=== PATIENT | female | born 1960 | race American Indian/Alaskan Native ===

== ENCOUNTER 2019-06-27 12:13 | Emergency (ER) | payer SELFPAY ==
--- NOTE | 2019-06-27 12:28 | Event Note ---
ED Screening Note Date of service: 06/27/19 Time: 12:27 ED Screening Note: 58 y o female presenst with left 3 finger lac today while working in yard This initial assessment/diagnostic orders/clinical plan/treatment(s) is/are subject to change based on patients health status, clinical progression and re- assessment by fellow clinical providers in the ED. Further treatment and workup at subsequent clinical providers discretion. Patient/guardian urged not to elope from the ED as their condition may be serious if not clinically assessed and managed. Initial orders include: xr lft finger
--- NOTE | 2019-06-27 13:15 | Emergency Department Report ---
ED Laceration HPI - HPI Chief Complaint: Fever Stated Complaint: LFT HAND CUT/PAIN Time Seen by Provider: 06/27/19 12:25 Occurred When: Today Location: Upper Extremity (left hand) Severity: moderate Laceration Symptoms: Yes Pain, No Foreign Body Sensation, No Numbness, No Weakness Other History: This is a 58-year-old -[place] female who presents to the emergency room with lacerations to left second, third, and fourth fingers. Patient states she was working in her when she accidentally cut her fingers with a electric guillotine trimmer. Patient has not applied anything to wound. Patient's pain she ran with the Tylenol and came in for evaluation. Patient states she is able to move all fingers and was able to give bleeding control. She reports pain with range of motion or touch. Denies numbness or tingling, swelling. ED Review of Systems ROS: Stated complaint: LFT HAND CUT/PAIN Other details as noted in HPI Constitutional: denies: chills, fever Respiratory: denies: cough, shortness of breath, wheezing Cardiovascular: denies: chest pain, palpitations Gastrointestinal: denies: abdominal pain, nausea, diarrhea Musculoskeletal: denies: back pain, joint swelling, arthralgia Skin: lesions (laceration of left second, third, and fourth fingers). denies: rash Neurological: denies: headache, weakness, paresthesias Psychiatric: denies: anxiety, depression ED Past Medical Hx - Past Medical History Previous Medical History?: Yes Hx of Cancer: Yes (left breast) Additional medical history: Anemia, Hypothyroid - Surgical History Past Surgical History?: Yes Additional Surgical History: Tonsillectomy,Gastric bypass, Hysterectomy, left mastectomy - Social History Smoking Status: Never Smoker Substance Use Type: Prescribed - Medications Home Medications: Home Medications Medication Instructions Recorded Confirmed Last Taken Type Clindamycin [Clindamycin CAP] 300 mg PO Q8H #21 cap 06/27/19 Unknown Rx Ibuprofen [Motrin 600 MG tab] 600 mg PO Q8H PRN #20 tablet 06/27/19 Unknown Rx Laceration Physical Exam - Exam General: Vital signs noted. No distress. Alert and acting appropriately. ED Course Vital Signs 06/27/19 12:23 Temperature 97.7 F Pulse Rate 76 Respiratory 20 Rate Blood Pressure 189/97 O2 Sat by Pulse 100 Oximetry - Laceration /Wound Repair Left Anterior Proximal Plantar Finger Wound Location: upper extremity (2nd proximal phalanx) Wound Length (cm): 2 Wound's Depth, Shape: into muscle, irregular, contused tissue Wound Explored: no foreign body removed Irrigated w/ Saline (ccs): 10 Betadine Prep?: Yes Anesthesia: 1% Lidocaine Volume Anesthetic (ccs): 1 Wound Debrided: minimal Wound Repaired With: sutures Suture Size/Type: 5:0 Number of Sutures: 7 (silver nitrate applied around wound) Layer Closure?: No Sterile Dressing Applied?: Yes Left Anterior Distal Plantar Finger Wound Location: upper extremity (2nd distal phalanx) Wound Length (cm): 1 Wound's Depth, Shape: superficial, irregular, contused tissue Wound Explored: no foreign body removed Irrigated w/ Saline (ccs): 1 Betadine Prep?: Yes Anesthesia: 1% Lidocaine Volume Anesthetic (ccs): 1 Wound Debrided: minimal Wound Repaired With: sutures Suture Size/Type: 5:0 Number of Sutures: 7 Layer Closure?: No Deep Layer Suture Size/Type: 5:0 Sterile Dressing Applied?: Yes Left Anterior Lateral Plantar Finger Wound Location: upper extremity (4th distal phalanx) Wound Length (cm): 1 Wound's Depth, Shape: into muscle, irregular, flap, contused tissue Wound Explored: no foreign body removed Irrigated w/ Saline (ccs): 10 Betadine Prep?: Yes Anesthesia: 1% Lidocaine Volume Anesthetic (ccs): 1 Wound Debrided: minimal Wound Repaired With: sutures Suture Size/Type: 5:0 Layer Closure?: No Sterile Dressing Applied?: Yes Left Anterior Plantar Finger Wound Location: upper extremity (third proximal phalanx) Wound Length (cm): 1 Wound's Depth, Shape: superficial Wound Explored: no foreign body removed Irrigated w/ Saline (ccs): 10 Betadine Prep?: Yes Anesthesia: 1% Lidocaine Volume Anesthetic (ccs): 1 Wound Debrided: minimal Wound Repaired With: Dermabond Suture Size/Type: 5:0 Layer Closure?: No Sterile Dressing Applied?: Yes ED Medical Decision Making - Radiology Data Radiology results: report reviewed Left hand 3 views INDICATION: Left hand pain following injury laceration IMPRESSION: Large lacerations involving the index middle and ring finger. No underlying foreign body or fracture. - Medical Decision Making Patient examined by me. Patient is non-toxic appearing and stable. X-ray of left hand obtained. Large lacerations involving the index middle and ring finger. No underlying foreign body or fracture. There are no signs of tendon damage on focal exam full range of motion of second, third, and fourth phalanx. Lacerations closed with sutures and glue, review note. After closure patient continued to bleed and silver nitrate applied around to control, bleeding controlled. Discharged home for outpatient treatment with clindamycin and ibuprofen. Discussed ER care plan with patient. Patient agreed with plan. F/U with PCP. Critical care attestation.: If time is entered above; I have spent that time in minutes in the direct care of this critically ill patient, excluding procedure time. ED Disposition Clinical Impression: Laceration of hand Qualifiers: Encounter type: initial encounter Foreign body presence: without foreign body Laterality: left Qualified Code(s): S61.412A - Laceration without foreign body of left hand, initial encounter Disposition: TO HOME OR SELFCARE Is pt being admited?: No Does the pt Need Aspirin: No Condition: Stable Instructions: Suture Care (ED), Laceration (ED) Additional Instructions: Take antibiotics as prescribed for the full course. Keep wound dry and clean for 48 hours. Avoid putting to much tension on wound site. Prop arm up on pillows to decrease swelling. Follow up with Primary Care Provider in 2-3 days. Have sutures removed in 7 days by primary care provider or in ER. Return to ER if red, swollen, foul discharge, or fever. Prescriptions: Clindamycin [Clindamycin CAP] 300 mg PO Q8H #21 cap Ibuprofen [Motrin 600 MG tab] 600 mg PO Q8H PRN #20 tablet PRN Reason: Pain Referrals: [facility] [Outside] - 3-5 Days [facility] [Outside] - 3-5 Days [facility] [Outside] - 3-5 Days JORDANA GILMAN MD [Staff Physician] - 3-5 Days Time of Disposition: 17:13
--- NOTE | 2019-06-27 13:57 | XRay Report ---
Left hand 3 views INDICATION: Left hand pain following injury laceration IMPRESSION: Large lacerations involving the index middle and ring finger. No underlying foreign body or fracture. Signer Name: Wenceslao Yuan MD Signed: 06/27/2019 1:53 PM Workstation Name: [id number]
[2019-06-27] MEDS ORDERED: XYLOCAINE 2% INFILTRATI ONE (13:59)
[2019-06-27] MEDS ORDERED: BOOSTRIX IM ONE (15:42)
[2019-06-27] MEDS ORDERED: SILVER NITRATE TP ONE ×2 (17:22→17:23)
[2019-06-27 17:49] VITALS: BP 172/80
== END 2019-06-27 18:06 | disposition home or self-care (01) ==
LOC: ED 12:13
DX: S61.412A Laceration without foreign body of left hand, initial encounter (principal); E03.9 Hypothyroidism, unspecified; Z86.2 Personal history of diseases of the blood and blood-forming organs and certain disorders involving the immune mechanism; Z90.89 Acquired absence of other organs; Z90.710 Acquired absence of both cervix and uterus; Z98.84 Bariatric surgery status; Z90.12 Acquired absence of left breast and nipple; W29.2XXA Contact with other powered household machinery, initial encounter; Y93.89 Activity, other specified; Y92.89 Other specified places as the place of occurrence of the external cause; Y99.8 Other external cause status
CPT/HCPCS: 90471; 90715